=== PATIENT | female | born 2000 | race African-American/Black ===

== ENCOUNTER 2022-10-10 13:32 | Inpatient (IN) ==
[2022-10-10] MEDS ORDERED: Al Hydrox/Mg Hydrox/Simet LIQ 30 ML UDC PO PRN (21:09)
[2022-10-14 08:13] VITALS: BP 108/77
== END 2022-10-14 12:06 | disposition home or self-care (01) | DRG 751 ==
LOC: ED 13:32 → EDHOLD 18:54 → BSU 19:34
PROVIDERS: ADMIT Psychiatry & Neurology Psychiatry; ATTEND Psychiatry & Neurology Psychiatry